=== PATIENT | female | born 1960 | race Caucasian/White ===

== ENCOUNTER 2021-07-01 10:26 | Emergency (ER) | payer BC ==
[~2021-07-01] VITALS: Ht 162.6 cm; Wt 69.4 kg
[2021-07-01 10:26] VITALS: BP_SYST 120
[2021-07-01 12:17] LABS: BASOPHILS % (AUTO) 0.8 % (0.0-2.0); EOSINOPHILS # (AUTO) 0.1 K/uL (0.0-0.4); EOSINOPHILS % (AUTO) 1.8 % (0.0-4.0); HEMATOCRIT 35.8 % (36-48); HEMOGLOBIN 11.8 g/dL (12.0-16.0); LYMPHOCYTES % (AUTO) 17.4 % (20.5-51.5); MEAN CORPUSCULAR HEMOGLOBIN 30 pg (27-31); MEAN CORPUSCULAR HGB CONC 33 % (32-36); MEAN CORPUSCULAR VOLUME 90 fL (79.0-98.0); MONOCYTES # (AUTO) 0.6 K/uL (0.0-1.0); MONOCYTES % (AUTO) 9.8 % (1.7-9.3); NEUTROPHILS # (AUTO) 4.2 K/uL (1.8-7.7); NEUTROPHILS % (AUTO) 70.2 % (40.0-70.0); PLATELET COUNT (AUTO) 346 K/uL (130-430); RED BLOOD CELL COUNT(AUTO) 3.98 MIL/uL (4.2-6.2); RED CELL DISTRIBUTION WIDTH 12.8 % (9.0-15.0)
[2021-07-01] MEDS ORDERED: CEPH250C PO (13:46)
[2021-07-01 13:56] VITALS: BP_SYST 101
[2021-07-01] MEDS ORDERED: cephALEXin 500 MG CAPSULE PO ONE (14:00)
== END 2021-07-01 13:57 | disposition home or self-care (01) ==
LOC: SED 10:26
DX: L03.115 Cellulitis of right lower limb (principal); Z98.890 Other specified postprocedural states
CPT/HCPCS: 36415; 85025; 93971; 99284